=== PATIENT | male | born 1990 | race Hispanic/Latino ===

== ENCOUNTER 2017-03-15 14:32 | Inpatient (IN) | payer MEDICAID, OTHER ==
[~2017-03-15] VITALS: Ht 170.2 cm; Wt 69.0 kg
[~2017-03-15 14:32] MED LIST: INSU100I13 SUBQ; INSU100I18 SUBQ
[2017-03-15 14:33] VITALS: BP 105/69; PULSE 140; RESP 26; O2SAT 100
[2017-03-15 14:52] VITALS: PULSE 101
[2017-03-15 15:08] VITALS: BP 95/62; PULSE 94; RESP 20; O2SAT 99
--- NOTE | 2017-03-15 15:13 | ED.REPORT ---
HPI-General Illness Date of Service Mar 15, 2017 ED Provider: Wilfrid Soriano MD Pt is a 26 y/o male w/ a hx of type 1 diabetes and multiple episodes of DKA, presenting to the ED c/o nausea and vomiting onset 02:00 this morning. He describes his emesis as dark brown colored. Pt denies bloody stools, abdominal pain, cough, nasal congestion, fever. He has had similar symptoms previously about once each year. He smokes marijuana daily. His primary concern is that he is in DKA. He has been taking his insulin as directed. Nursing Notes Stated Complaint: TYPE I DIABETIC Chief Complaint: General Complaint Nursing Notes Reviewed: Yes Allergies: Coded Allergies: No Known Allergies (Verified , 06/21/16) Scheduled Insulin Glargine (Lantus U100 Insulin Vial) 100 Unit/Ml Vial 35 UNIT SUBQ HS Insulin Lispro (HumaLOG U100 Insulin Pen) 100 Unit/1 Ml Insuln.pen 10-20 UNIT SUBQ BIDWM *STATES CARB COUNTS AND PER SLIDING SCALE. 1 UNIT INSULIN FOR 5 GRAM CARBS AND 1 UNIT INSULIN FOR EVERY 40 POINTS GLUCOSE > 120. General Time Seen by MD: 15:06 Chief Complaint Vomiting Hx Obtained From: Patient Arrived By: Walk-in Sudden in Onset?: Yes Onset Occurred: 13 - 16 hours ago Symptom Duration: Since onset Severity: Current: No pain currently Severity: Maximum: No pain Similar Sx Previous: Yes Past Medical History Past Medical History Diabetes type one since 10 years old-has history of DKA ( 12 previous admissions for this complaint) Past Surgical History Denies Smoking History Unknown if Ever Smoker Social History Alcohol Use: "Social" Other Social History: Good social support, Local resident Ambulatory Status Independent Review of Systems Full Review of Systems Constitutional: Denies: Chills, Fever Ears / Nose / Throat: Denies: Nasal congestion Respiratory: Denies: Non-productive cough GI: Reports: Nausea, Vomiting, Denies: Abdominal pain, Bloody/tarry stool Complete sys rev & neg: except as marked. Physical Exam Vital Signs Vital Signs Date Time Temp Pulse Resp B/P Pulse Ox O2 Delivery O2 Flow Rate FiO2 03/15/17 15:08 94 20 95/62 99 03/15/17 14:52 101 03/15/17 14:33 36.0 140 26 105/69 100 Initial VS: Reviewed, Vital signs abnormal Head / Eyes: Atraumatic, Normocephalic ENT: Mucous membranes moist, Conjunctiva normal, No scleral icterus Neck: Supple, Full range of motion Respiratory: Breath sounds normal, Clear to auscultation, No respiratory distress Cardiovascular: Regular rate & rhythm, Heart sounds normal, Intact distal pulses Abdomen / GI: Soft, Non-tender, No guarding, No rebound, No distention Extremities: Vascular intact, Neuro intact, No swelling Skin: Warm, Dry, No cyanosis Neurologic: Alert, Oriented, Nonfocal Psychiatric: Mood/affect normal, Behavior normal, Normal thought content General/Constitutional: Awake, Alert, No acute distress, Cooperative, Not toxic appearing Distress / Hydration: Positive: Dehydration moderate Appearance / Presentation: Positive: Ill appearing/not toxic, Uncomfortable Interpretation & Diagnostics Lab Results Interpretation Result Diagram: 03/15/17 1445 03/15/17 1445 Test 03/15/17 14:45 03/15/17 18:31 White Blood Count 20.3th/mm3 (3.8-10.1) Red Blood Count 5.95mil/mm3 (4.40-5.80) Hemoglobin 17.0g/dL (13.8-17.2) Hematocrit 50.5% (41.0-50.0) Mean Corpuscular Volume 84.9fL (81-100) Mean Corpuscular Hemoglobin 28.6pg (27.0-35.0) Mean Corpuscular Hemoglobin Concent 33.7% (32.0-37.0) Red Cell Distribution Width 12.8% (12.3-15.4) Platelet Count 373bil/L (150-400) Neutrophils (%) (Auto) 82.5% (40-74) Lymphocytes (%) (Auto) 7.7% (14-46) Monocytes (%) (Auto) 9.3% (4-12) Eosinophils (%) (Auto) 0% (0-5) Basophils (%) (Auto) 0.2% (0-3) Sodium Level 139mEq/L (134-144) Potassium Level 3.8mEq/L (3.5-5.2) Chloride Level 96mEq/L (97-108) Carbon Dioxide Level 16mmol/L (18-29) Blood Urea Nitrogen 21mg/dL (6-20) Creatinine 0.74mg/dL (0.76-1.27) Estimat Glomerular Filtration Rate 138mL/min (>59) Glucose Level 174mg/dL (60-99) Calcium Level 10.0mg/dL (8.5-10.1) Total Bilirubin 0.8mg/dL (0.0-1.2) Aspartate Amino Transf (AST/SGOT) 23U/L (0-50) Alanine Aminotransferase (ALT/SGPT) 19U/L (0-44) Alkaline Phosphatase 147U/L (25-150) Total Protein 8.3g/dL (6.4-8.4) Albumin 4.6g/dL (3.4-5.0) Lipase 64U/L (13-60) Procalcitonin 0.31ng/mL (0.00-0.08) Hold Romeo Top Tube Received (Received) Lactic Acid Level 1.3mmol/L (0.4-2.0) X-Ray Chest Interpretation Chest Xray Interpretation: IMPRESSION: No source of cough is found. Dictated by: Olegario Zhou M.D. on 03/15/2017 at 16:09 Approved by: Olegario Zhou M.D. on 03/15/2017 at 16:09 View: Portable, 1 view Interpretation / Wet Read by: Interpret - Radiologist Re-Eval/Medical Decision Med Decision/Clinical Course 26-year-old male type I diabetes presenting with nausea vomiting since this morning. Vital signs are stable. White blood cell count is 20,000. Lactate is 4.9. Improved to 1 with IV fluids. Urine suggestive of UTI on dip. Patient will be admitted for UTI, sepsis, nausea vomiting. There is no evidence of DKA with blood sugars in the 100s. Rocephin given. Blood culture sent. Source of Hx: Old records Time of Eval: 16:41 Re-Evaluation/Progress Note: Pt rechecked. Still vomiting, doesn't feel much better. Time of Eval: 16:56 Re-Evaluation/Progress Note: Pt rechecked. Informed pt of need for admission. Pt understands and agrees with plan for admission. All questions addressed. Consultation : Referral / Consult Name: Diya Valdez DO Consulted With: Hospitalist Call Returned at: 19:11 Bending Shed Worker: Will see patient, Agrees with eval, Agrees with plan, Accepts admit Counseled Regarding: Diagnosis, Lab results, Need for admission Discharge & Departure Primary Impression: Sepsis Sepsis type: sepsis due to unspecified organism Qualified Code: A41.9 - Sepsis, unspecified organism Additional Impressions: Intractable nausea and vomiting Vomiting type: cyclical vomiting Qualified Code: G43.A1 - Cyclical vomiting , intractable Lactic acidosis Hyperglycemia Leukocytosis Leukocytosis type: unspecified Qualified Code: D72.829 - Elevated white blood cell count, unspecified UTI (urinary tract infection) Urinary tract infection type: site unspecified Hematuria presence: without hematuria Qualified Code: N39.0 - Urinary tract infection, site not specified Methamphetamine abuse Disposition: ADMITTED TO HOSPITAL Discharge Condition All VS Reviewed: Yes Condition: Stable Referrals: [facility] Scribe Attestation Portions of this note were transcribed by Joselo Jimenez. I, Dr. Soriano personally performed the history, physical exam and medical decision-making; I reviewed and confirmed the accuracy of the information in the transcribed note. copies to: [facility] Wilfrid Soriano MD Mar 15, 2017 15:13 JOSELO JIMENEZ Mar 15, 2017 15:27
[2017-03-15] MEDS ORDERED: 0.9% Sodium Chloride 1,000 ML IV ONE ×3 (15:26→17:06)
[2017-03-15] MEDS ORDERED: Ondansetron 2 mg/mL 2 mL Inj ONE (15:27)
[2017-03-15] MEDS ORDERED: Ondansetron 2 mg/mL 2 mL Inj IVPUSH PRN ×2 (15:30→19:15)
[2017-03-15 15:31] LABS: BASOPHILS % (AUTO) 0.2 % (0-3); EOSINOPHILS % (AUTO) 0 % (0-5); MONOCYTES % (AUTO) 9.3 % (4-12); Mean Corpuscular Hemoglobin 28.6 pg (27.0-35.0); Mean Corpuscular Volume 84.9 fL (81-100); NEUTROPHILS % (AUTO) 82.5 % (40-74); Platelet Count 373 bil/L (150-400)
--- NOTE | 2017-03-15 16:11 | DRSVH ---
PROCEDURE: X-RAY CHEST ONE VIEW, PORTABLE ([id number]) INDICATIONS: cough TECHNIQUE: One view of the chest was acquired. COMPARISON: [facility], CR, XR CHEST 1VW, 06/21/2016, 2:24. FINDINGS: Surgical changes and devices: None. Lungs and pleura: No pleural effusions or pneumothorax. Lungs are clear. Mediastinum: Mediastinal contours appear normal. Heart size is normal. Bones and chest wall: No suspicious bony lesions. Overlying soft tissues appear unremarkable. IMPRESSION: No source of cough is found. Dictated by: Olegario Zhou M.D. on 03/15/2017 at 16:09 Approved by: Olegario Zhou M.D. on 03/15/2017 at 16:09
[2017-03-15] MEDS ORDERED: MetoCLOpramide 5 mg/mL 2 mL Inj IVPUSH ONE (16:40)
[2017-03-15] MEDS ORDERED: cefTRIAXone Inj 2,000 MG in Dextrose 5% Minibag Plus 50 ML IV ONE (17:10)
[2017-03-15] MEDS ORDERED: INSU100I18 SUBQ (18:35)
[2017-03-15] MEDS ORDERED: INSU100V7 SUBQ (18:35)
[2017-03-15 19:11] VITALS: BP 103/64; PULSE 103; RESP 18; O2SAT 100
[2017-03-15] MEDS ORDERED: Alum-Mag Hydrox-Simeth 30 mL Suspension PO PRN (19:15)
[2017-03-15] MEDS ORDERED: Polyethylene Glycol (PEG) 17 Gm Powder PO PRN (19:15)
--- NOTE | 2017-03-15 19:22 | PCM.HPMED ---
Subjective Date of Service Mar 15, 2017 Primary Provider: Admitting Physician: Diya Valdez DO Primary Care Physician: Zach Geronimo MD Attending Physician: Diya Valdez DO Admit Status: From the Emergency Department Chief Complaint: nausea and vomiting History of Present Illness: 26yoM with past medical history of DM1 with recurrent DKA admitted with nausea and vomiting with possible UTI. Patient currently stable. Patient was diagnosed with diabetes type 1 at the age of 89 years old and has been admitted on prior occasion with DKA. 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 He has been unable to keep very little down and endorses some blood streaking to his emesis. Most recently as in prior admissions patient states that he has been compliant with insulin usage which entails 35u glargine qHS and sliding scale humalog. He denies any sick contacts or changes in routine. Blood glucose upon arrival was 174 with lactic acid of 4.6 and bicarb of 16. HR >90 and WBC 20. Patient endorses no other symptoms at this time and asks about the presence of ketones which is currently pending. Initial rapid UA in ED was concerning for UTI and patient was started on ceftriaxone. Review of Systems: complete review of systems obtained. positive as per hpi otherwise negative. Allergies Coded Allergies: No Known Allergies (Verified , 06/21/16) Home Medications 1. Lantus 35 units subcutaneous q.h.s. 2. Insulin lispro sliding scale. PMH 1. Type 1 diabetes mellitus. 2. Prior history of DKA. 3. Prior history of polysubstance abuse. Surgical History No surgical history Family History FAMILY HISTORY: Negative for type 1 diabetes. Father was recently diagnosed with type 2 diabetes. Mother has recently being diagnosed with breast cancer. Social History Hx Alcohol Use: Yes Hx Substance Use: Yes (snorks cocaine, last 06/19/16, smokes MJ, last taken meth 4 months ago) Hx Tobacco Use: Yes Smoking Status: Unknown if Ever Smoker Exam Vital Signs Vital Sign - Last Date Time Temp Pulse Resp B/P Pulse Ox O2 Delivery O2 Flow Rate FiO2 03/15/17 19:11 103 18 103/64 100 Room Air 03/15/17 14:33 36.0 Exam Exam General: Alert, Oriented X3, Cooperative, no acute Distress Eyes: PERRLA, Scleral Anicteric Mouth: Mouth Normal, Mucous Membranes Moist/Cale Neck: Supple, no Thyromegaly, trachea central. Chest & Lungs: Clear to auscultation & percussion, No adventitious breath sounds, no crackles, no wheeze Cardiovascular: Normal S1, Normal S2, No Murmurs/Rubs/Gallops, Regular Rate/ Rhythm Pulses: Radial (present and equal), Dorsalis Pedi (present and equal) Abdomen: Soft,non-tender, Non-distended, Normoactive bowel tones. Musculoskeletal: Unremarkable. Normal range of motion, no swollen or erythematous joints Extremities: No edema, no cyanosis, no clubbing. Skin: No rashes. Warm and dry, no erythematous areas Neurological: Grossly neurologically intact, Normal Speech, Sensation Intact Lymphatic: Lymph nodes Cervical and Axillary not palpable. Lab and Diagnostics Result Diagram: 03/15/17 1445 03/15/17 1445 X-Rays, CTs and MRIs Patient Name: PERCY LÓPEZ MR#: [id number] Location: [facility] [place] Ordering Phys: Wilfrid Soriano MD Date of Service: 03/15/17 1538 PROCEDURE: X-RAY CHEST ONE VIEW, PORTABLE ([id number]) INDICATIONS: cough TECHNIQUE: One view of the chest was acquired. COMPARISON: [facility], CR, XR CHEST 1VW, 06/21/2016, 2:24. FINDINGS: Surgical changes and devices: None. Lungs and pleura: No pleural effusions or pneumothorax. Lungs are clear. Mediastinum: Mediastinal contours appear normal. Heart size is normal. Bones and chest wall: No suspicious bony lesions. Overlying soft tissues appear unremarkable. IMPRESSION: No source of cough is found. Dictated by: Olegario Zhou M.D. on 03/15/2017 at 16:09 Approved by: Olegario Zhou M.D. on 03/15/2017 at 16:09 Assessment & Plan 26yoM with past medical history of DM1 with recurrent DKA admitted with nausea and vomiting with possible UTI. Patient currently stable. Sepsis, acute, POA -secondary to UTI -WBC>12, HR>90, RR>20 -early goal directed therapy with IV fluid and abx initiated in ED - treatment as below Possilbe UTI, acute, POA -no past history of recurrent UTI -official UA pending -ceftriaxone given in ED, will continue Nausea and vomiting, acute, POA -secondary to UTI vs gastroenteritis vs dka (glucose 170s on admission, ketones pending) -mIVF [id number] -diet clears -symptomatic management with ondansetron. -will add reglan if needed Metabolic gap acidosis, acute, POA -secondary to elevated lactic acid, gap 27 -treatment as above -serum and ketones and urine ketones added on and pending, if positive will transfer to ccu for dka tx Lactic acidosis, acute, POA -secondary to dehydration -4.6 on presentation repeat 1.3 Diabetes type 1, chronic, POA -continue home glargine dosing (35 units qhs) -medium correctional SSI Pain Evaluation: Adequate Pain Control GI Prophylaxis: Not indicated VTE Prophylaxis: Sub-Q Heparin (Unfractionated) Resuscitation Status: CPR: Attempt Resuscitation Diya Valdez DO Mar 15, 2017 19:22
[2017-03-15 19:49] LABS: APPEARANCE,URINE HAZY (CLEAR,HAZY); COLOR,URINE YELLOW (YELLOW); OCCULT BLOOD,URINE TRACE (NEGATIVE); PH,URINE 5.5 (5.0-8.0)
[2017-03-15 19:50] LABS: UROBILINOGEN,URINE NORMAL (NORMAL)
--- NOTE | 2017-03-15 20:00 | NUR ---
Admission Pt arrived to [facility] [place] via wheelchair alert and oriented x 3 smiling and joking with family at 1935. Pt able to ambulate onto the scale and bed with a steady gait. Denies chest pain, shortness of breath, nausea and general pain. Pt oriented to room, call light, bathroom, television, and bed controls. Pt answered admission questions appropriately. VSS. Tele in place. Care continues. Addendum: 03/16/17 at 0014 by BILL FIORE RN Pt transferred to CCU room 2016 in care of CLOVER Herbert at 0015 with all questions answered.
[2017-03-15 20:19] VITALS: BP 112/70; PULSE 107; RESP 19; O2SAT 100
[2017-03-15] MEDS: 0.9% Sodium Chloride 1,000 ML IV SCH (21:18)
[2017-03-15] MEDS ORDERED: Insulin GLARgine 100 Unit/mL Syringe SUBQ SCH (23:40)
[2017-03-15] MEDS ORDERED: Glucose 40% Oral Gel 15 Gm Tube PO PRN (23:40)
[2017-03-16 00:30] VITALS: BP 126/67; PULSE 103; RESP 17; O2SAT 99
[2017-03-16] MEDS ORDERED: D5W1/2NS 1,000 mL IV PRN (02:45)
[2017-03-16] MEDS ORDERED: Insulin Human REGular 300 Unit/3 mL Inj IV PRN (02:45)
[2017-03-16] MEDS ORDERED: Insulin Human REGular 100 Units/100 mL NS IV SCH ×2 (02:45)
[2017-03-16 04:30] VITALS: BP 108/50; PULSE 103; RESP 16; O2SAT 99
--- NOTE | 2017-03-16 05:41 | ABG ---
DateTimeAnalyzed 05:32:48 -_ pH ____7.368 - 7.350 7.450 pCO2 ___31.2__ -mmHg 35.0 45.0 pO2 106 -mmHg 69.0 116 HCO3- ___18.0__ -mmol/L 22.0 26.0 ABE ___-6.6__ -mmol/L -2.0 2.0 tHb ___13.8__ -g/dL 12.0 18.0 O2Hb ___96.4__ -% COHb ____1.5__ -% 0.0 1.5 MetHb ____0.0__ -% 0.4 1.5 sO2 ___97.8__ -% FIO2 ___21.0__ -% Drawn By MD - Date/Time Notified____ 05:40:00 -_ Notified By MD - Notified Whom RN J.ALEX - Age 19 -years K+ ____3.6__ -mmol/L 3.5 5.0 tO2 ___18.8__ -Vol% Conrad test _Positive -
--- NOTE | 2017-03-16 06:41 | NUR ---
Transfer/DKA 0025 - Patient transferred from 3004 to 2015 for DKA, A&O x4 and transferred with belongings and cell phone with jaw skinner, BS 349 on arrival to CCU, Ketones lab value drawn by phlebotomy, DKA protocol started and insulin gtt started at 10.1 units/hr, AM labs drawn after 0300, CO2 results 9, and Anion gap 28.0, ABG ordered and results called to Dr. Valdez, no order changes now, tolerating insulin gtt and last BS 167, pleasant and cooperative, no distress noted. Addendum: 03/16/17 at 0648 by LINDA ALEX RN Amended: Links added.
[2017-03-16] MEDS: 0.9% Sodium Chloride 1,000 ML IV SCH (07:00)
[2017-03-16] MEDS ORDERED: Insulin LISPRO 300 Unit/3 mL Inj SUBQ SCH ×2 (08:00→17:30)
[2017-03-16 08:40] VITALS: BP 91/51; PULSE 103; RESP 16; O2SAT 99
[2017-03-16 09:04] LABS: EOSINOPHILS % (AUTO) 0.7 % (0-5); MONOCYTES % (AUTO) 9.5 % (4-12); Mean Corpuscular Hemoglobin 29.7 pg (27.0-35.0); Mean Corpuscular Volume 89.6 fL (81-100); NEUTROPHILS % (AUTO) 68.7 % (40-74); Platelet Count 274 bil/L (150-400)
[2017-03-16 11:58] VITALS: PULSE 83
[2017-03-16 12:05] VITALS: BP 105/61; PULSE 84; RESP 18; O2SAT 100
[2017-03-16] MEDS ORDERED: Glucose 40% Oral Gel 15 Gm Tube PO PRN (13:30)
[2017-03-16] MEDS ORDERED: Dextrose 10% 250 ML IV PRN (13:35)
--- NOTE | 2017-03-16 13:40 | NUR ---
Transfer Pt transferred out of CCU to PCU. Blood sugars in the 120's. DC insulin gtt at 1330 and SQ ordered. Pt tolerating clear liquid diet.
--- NOTE | 2017-03-16 14:58 | NUR ---
Social Work- Initial Assessment Data: See Initial Assessment for additional information. Pt is a 26 year old male admitted for nausea/vomiting per H&P. Pt's insurance is [employer] other things you bake. Pt's PCP is [facility] in [place]. Pt's readmit risk score is not listed at this time. Pt discussed in multidisciplinary rounds. Pt is not medically stable for d/c. Pt has history of cocaine, meth, and marijuana use. Substance Abuse order acknowledged. See additional CD Assessment Note. SW met with pt at bedside regarding d/c planning. Pt alert and oriented x3. Pt splits his time between [place] and [place], living with his parents in [place] and his cousins in [place]. Pt works at [employer]. Pt is independent with ADLs and self-care. Pt's NOK and designated d/c planning contact is his father Devante Finch [phone]. Pt to d/c home via POV when medically ready. Pt declined Discharge Planning Checklist at bedside. No additional d/c planning needs. SW will continue to follow. Assessment: Pt who is independent with ALDs and self-care at baseline. Plan: Pt to d/c home via POV. No d/c planning needs identified. SW will continue to follow. RAYSHAWN Varela Addendum: 03/16/17 at 1503 by NAZANIN STEEL SS Amended: Links added.
--- NOTE | 2017-03-16 15:03 | NUR ---
Social Work- Chemical Dependency Assessment Patient Name: Rufino Cuadra Current Circumstances/Reason for Referral: Pt disclosed history of cocaine, meth, and marijuana use to . LANCE met with pt at bedside to discuss this use History of Substance Use: Pt used to smoke meth every day for the past 2 years until approximately 6 months ago. Currently pt reports using meth once a month or once every other month. Pt reports last use was last month. No toxicology lab was obtained upon admission. History of Treatment Programs: Pt has no history of inpatient or outpatient admissions. History of Withdrawal Symptoms: Pt reports no withdrawal symptoms. Family History: Pt has no history of cocaine or meth use, but pt reports that his grandfather drank etoh heavily. Pt calls his family social drinkers and they have alcohol at all family events. History of Sobriety and Supports: Pt's cousins are aware of his use and are a support in sobriety. Pt's parents vaguely know that pt uses but aren't identified as a support. Pt is guarded when he thinks about disclosing this information to his parents. Patients Perception of use: Pt is proud that he has cut down his use to once monthly after using daily for so long. Pt accomplished this completely independently after realizing that daily use was not the quality of life he desired. Pt reports that he distanced himself from his friends who were using in his effort to stop. Pt declined outpt CD resources and also declined any desire to completely stop using. Pt is happy with his current level of use and denies desire to change. Suicide Risk assessment: Pt denied any SI or HI. Pt denied any history of MH concerns. Recommendations for referral and follow up: Recommend that pt stop using completely, continue to distance himself from his friend that provides the substances. Pt confirms that he will drive himself home via POV at discharge. No additional CD needs. Pt declined CD resources. RAYSHAWN Varela
[2017-03-16] MEDS ORDERED: AMOX-366 PO (16:12)
--- NOTE | 2017-03-16 16:17 | PCM.DIMED ---
Devante Fraser DO 03/16/17 1604: Discharge Instructions Date of Service Mar 16, 2017 Dates of Hospitalization Mar 15, 2017 at 18:33 Discharge Diagnosis Discharge Diagnosis Sepsis, acute, POA UTI, acute, POA Nausea and vomiting, acute, POA Metabolic gap acidosis, acute, POA Lactic acidosis, acute, POA Diabetes type 1, chronic, POA . Medication Instructions Additional med instructions We will be sending you home with an antibiotic for your urinary tract infection. It is called Augmentin, it must be taken twice per day for 5 days. Please take the entire bottle of medication. Diet Discharge Diet: Diabetic (Very low carbohydrate; no bread, rice, pasta, or potatoes) Activity Discharge Activity: No restrictions Call your provider Call your provider for: Fever or Chills, Shortness of breath, Bleeding, Chest pain, Vomitting, Excessive diarrhea, Weakness (unilateral) Patient Instructions Patient Instructions We cannot overstate how important it is that you manage your diabetes much more closely. You are at risk of developing many exceptionally unpleasant and potentially life threatening complications in the near future if you do not achieve better blood sugar control. Please purchase The Diabetes Solution, by Dr. Matteo Stuart, this book will serve as a nutritional guide for how you can manage your diabetes and avoid the devastating side effects of this disease. Follow-up plan Please follow up with your primary care provider Dr. Zach Geronimo within 1 week. Follow-up Provider: Zach Geronimo MD Follow-up with PCP in: 1 week Bryant Maier MD 03/16/17 1635: Discharge Instructions Attending's Statement The patient was seen and examined together with Dr. Fraser on 03/16/2017 and I agree with the history, exam and plan as outlined in the note above. . Devante Fraser DO Mar 16, 2017 16:04 Bryant Maier MD Mar 16, 2017 16:35
[2017-03-16] MEDS ORDERED: cefTRIAXone Inj 1,000 MG in Dextrose 5% Minibag Plus 50 ML IV SCH (17:00)
--- NOTE | 2017-03-16 17:00 | PCM.DC.MED ---
Discharge Summary Date of Service Mar 16, 2017 Dates of Hospitalization Date of Hospital Admission Mar 15, 2017 at 18:33 Date of Discharge: Mar 16, 2017 Providers: Admitting Physician: Diya Valdez DO Primary Care Physician: Zach Geronimo MD Attending Physician: Bryant Maier MD Diagnosis at Time of Discharge Diagnosis at Time of Discharge Sepsis, acute, POA UTI, acute, POA Nausea and vomiting, acute, POA Metabolic gap acidosis, acute, POA Lactic acidosis, acute, POA Diabetes type 1, chronic, POA . Procedures XRay, CTs & MRIs Patient Name: PERCY LÓPEZ MR#: [id number] [place] [facility] [place] Phys: Wilfrid Soriano MD Date of Service: 03/15/17 1538 PROCEDURE: X-RAY CHEST ONE VIEW, PORTABLE ([id number]) INDICATIONS: cough TECHNIQUE: One view of the chest was acquired. COMPARISON: [facility], CR, XR CHEST 1VW, 06/21/2016, 2:24. FINDINGS: Surgical changes and devices: None. Lungs and pleura: No pleural effusions or pneumothorax. Lungs are clear. Mediastinum: Mediastinal contours appear normal. Heart size is normal. Bones and chest wall: No suspicious bony lesions. Overlying soft tissues appear unremarkable. IMPRESSION: No source of cough is found. Dictated by: Olegario Zhou M.D. on 03/15/2017 at 16:09 Approved by: Olegario Zhou M.D. on 03/15/2017 at 16:09 Brief History Taken from History and Physical composed by Dr. Valdez on 03/15/17 26yoM with past medical history of DM1 with recurrent DKA admitted with nausea and vomiting with possible UTI. Patient currently stable. Patient was diagnosed with diabetes type 1 at the age of 89 years old and has been admitted on prior occasion with DKA. 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 He has been unable to keep very little down and endorses some blood streaking to his emesis. Most recently as in prior admissions patient states that he has been compliant with insulin usage which entails 35u glargine qHS and sliding scale humalog. He denies any sick contacts or changes in routine. Blood glucose upon arrival was 174 with lactic acid of 4.6 and bicarb of 16. HR >90 and WBC 20. Patient endorses no other symptoms at this time and asks about the presence of ketones which is currently pending. Initial rapid UA in ED was concerning for UTI and patient was started on ceftriaxone. . Hospital Course 26yoM with past medical history of DM1 with recurrent DKA admitted with nausea and vomiting with possible UTI. Mr López improved rapidly on insulin drip and was able to be transitioned to subq insulin without difficulty. His urine grew GBS which is generally susceptible to penicillins and thus was discharged on a course of Augmentin. He would benefit from a repeat BMP upon follow up with his PCP to ensure that his ion gap has remained closed and to address his poor management of his diabetes. He states that he does not regularly check his blood sugar, and describes occasional symptoms which would be consistent with Hypoglycemia as well, so he would greatly benefit from tighter and more nuanced glycemic control, perhaps an insulin pump. Sepsis, acute, POA, Resolved -secondary to UTI -WBC>12, HR>90, RR>20 upon presentation -early goal directed therapy with IV fluid and abx initiated in ED - treatment as below UTI, acute, POA, Active -no past history of recurrent UTI -official UA pending -ceftriaxone given in ED -Urine with preliminary culture indicative of GBS -Discharged on Augmentin Nausea and vomiting, acute, POA. Resolved -secondary to UTI vs gastroenteritis vs dka (glucose 170s on admission repeat measure > 390 -diet clears upon arrival, advanced as tolerated -symptomatic management with ondansetron. -Considered but did not use Reglan Metabolic gap acidosis, acute, POA, Improving -secondary to elevated lactic acid, gap 27 upon arrival -treatment as above -was on Insulin drip until sugars normalized and ion gap was trending towards closure Lactic acidosis, acute, POA. Resolved -secondary to dehydration -4.6 on presentation repeat 1.3 Diabetes type 1, chronic, POA, Actove -continue home glargine dosing (35 units qhs) -medium correctional SSI -Patient states that he does not check his blood sugars -Would greatly benefit from tighter glycemic control and regular blood sugar measurement. Exam Vital Signs (Last) Date Time Temp Pulse Resp B/P Pulse Ox O2 Delivery O2 Flow Rate FiO2 03/16/17 12:05 37.1 84 18 105/61 100 Room Air Exam Gen: A/O x3 pleasant cooperative young man in NAD Neck: Supple, non tender, no JVD HEENT: PERRL, EOMI, no scleral icterus, no conjunctival pallor CV: RRR, no murmurs rubs or gallops Resp: Lungs CTA BL, no wheezing rales or rhonchi Abd: Soft, no rebound guarding tenderness or masses Extr: No clubbing cyanosis or edema Neuro: CN 2-12 grossly intact, no focal neurologic deficit Psych: Pleasant and appropriate mood and affect. Test 03/15/17 14:45 03/15/17 18:31 03/15/17 18:46 03/16/17 00:27 Total Bilirubin 0.8mg/dL (0.0-1.2) Aspartate Amino Transf (AST/SGOT) 23U/L (0-50) Alanine Aminotransferase (ALT/SGPT) 19U/L (0-44) Alkaline Phosphatase 147U/L (25-150) Total Protein 8.3g/dL (6.4-8.4) Albumin 4.6g/dL (3.4-5.0) Lipase 64U/L (13-60) Procalcitonin 0.31ng/mL (0.00-0.08) Hold Romeo Top Tube Received (Received) Lactic Acid Level 1.3mmol/L (0.4-2.0) Urine Color Yellow (YELLOW) Urine Appearance Hazy (CLEAR,HAZY) Urine pH 5.5 (5.0-8.0) Urine Specific [place] 1.020 (1.003-1.035) Urine Protein 30mg/dL (NEG,TRACE) Urine Glucose (UA) 1000mg/dL (NEGATIVE) Urine Ketones 80mg/dL (NEGATIVE) Urine Occult Blood Trace (NEGATIVE) Urine Nitrite Negative (NEGATIVE) Urine Bilirubin Negative (NEGATIVE) Urine Urobilinogen Normalmg/dL (NORMAL) Urine Leukocyte Esterase Trace (NEGATIVE) Urine RBC 3-10/hpf (0-2) Urine WBC 6-10/hpf (0-5) Urine Epithelial Cells Moderate/hpf (NONE-MOD) Urine Crystals None seen (NONE SEEN) Urine Bacteria Few/hpf (NONE-FEW) Urine Hyaline Casts None/lpf (NONE) Urine Granular Casts None seen (NONE SEEN) Urine Waxy Casts None seen (NONE SEEN) Urine Red Blood Cell Casts None seen (NONE SEEN) Urine White Blood Cell Casts None seen (NONE SEEN) Urine Mucus Present (None Seen) Urine Trichomonas None seen (NONE SEEN) Urine Yeast None (NONE SEEN) Urinalysis Comment None Urine Culture Reflexed Indicated Hold Urine Received (Received) Ketones Test 03/16/17 08:30 White Blood Count 13.5th/mm3 (3.8-10.1) Red Blood Count 4.62mil/mm3 (4.40-5.80) Hemoglobin 13.7g/dL (13.8-17.2) Hematocrit 41.4% (41.0-50.0) Mean Corpuscular Volume 89.6fL (81-100) Mean Corpuscular Hemoglobin 29.7pg (27.0-35.0) Mean Corpuscular Hemoglobin Concent 33.1% (32.0-37.0) Red Cell Distribution Width 12.8% (12.3-15.4) Platelet Count 274bil/L (150-400) Neutrophils (%) (Auto) 68.7% (40-74) Lymphocytes (%) (Auto) 19.9% (14-46) Monocytes (%) (Auto) 9.5% (4-12) Eosinophils (%) (Auto) 0.7% (0-5) Basophils (%) (Auto) 1.0% (0-3) Sodium Level 138mEq/L (134-144) Potassium Level 4.2mEq/L (3.5-5.2) Chloride Level 104mEq/L (97-108) Carbon Dioxide Level 16mmol/L (18-29) Blood Urea Nitrogen 15mg/dL (6-20) Creatinine 0.61mg/dL (0.76-1.27) Estimat Glomerular Filtration Rate 173mL/min (>59) Glucose Level 147mg/dL (60-99) Calcium Level 8.1mg/dL (8.5-10.1) Discharge Medications Discharge Medications Amoxicillin/Clav K 875-125 mg (Augmentin 875-125 mg) 1 Each Tablet 1 TABLET PO BID Prescribed by: JAQUELIN FRASER DO Insulin Glargine (Lantus U100 Insulin Vial) 100 Unit/Ml Vial 35 UNIT SUBQ HS ( Reported) Insulin Lispro (HumaLOG U100 Insulin Pen) 100 Unit/1 Ml Insuln.pen 10-20 UNIT SUBQ BIDWM (Reported) *STATES CARB COUNTS AND PER SLIDING SCALE. 1 UNIT INSULIN FOR 5 GRAM CARBS AND 1 UNIT INSULIN FOR EVERY 40 POINTS GLUCOSE > 120. Additional med instructions We will be sending you home with an antibiotic for your urinary tract infection. It is called Augmentin, it must be taken twice per day for 5 days. Please take the entire bottle of medication. Followup Plan Disposition: Home Follow-up plan Please follow up with your primary care provider Dr. Zach Geronimo within 1 week. Discharge Diet: Diabetic (Very low carbohydrate; no bread, rice, pasta, or potatoes) Discharge Activity: No restrictions Patient Instructions We cannot overstate how important it is that you manage your diabetes much more closely. You are at risk of developing many exceptionally unpleasant and potentially life threatening complications in the near future if you do not achieve better blood sugar control. Please purchase The Diabetes Solution, by Dr. Matteo Stuart, this book will serve as a nutritional guide for how you can manage your diabetes and avoid the devastating side effects of this disease. Follow-up Provider: Zach Geronimo MD Follow-up with PCP in: 1 week Time spent Greater than 30 minutes was spent in preparation of discharge with greater than 50% of that time dedicated to patient counseling and coordination of care. . Attending Statement The patient was seen and examined together with Dr. Fraser on 03/16/2017 and I agree with the history, exam and plan as outlined in the note above. . copies to: Zach Geronimo MD, David E DO Mar 16, 2017 17:00 Bryant Maier MD Mar 17, 2017 09:07
[2017-03-16] MEDS ORDERED: Insulin GLARgine 100 Unit/mL Syringe SUBQ SCH (21:00)
== END 2017-03-16 17:09 | disposition home or self-care (01) | DRG 872 ==
LOC: SED 14:32 → MPC 18:33 → CCU 03-16 01:34 → PCC 03-16 11:40
PROVIDERS: ADMIT Internal Medicine; ATTEND Internal Medicine
PROC: 4A033R1 Measurement of Arterial Saturation, Peripheral, Percutaneous Approach (ICD-10-PCS; principal; 2017-03-16)
DX: A41.9 Sepsis, unspecified organism (principal); N39.0 Urinary tract infection, site not specified; E10.9 Type 1 diabetes mellitus without complications; R11.2 Nausea with vomiting, unspecified